=== PATIENT | female | born 1930 | race Caucasian/White ===

== ENCOUNTER 2017-03-25 09:45 | Emergency (ER) | payer MEDICARE, MEDICAID ==
[~2017-03-25] VITALS: Ht 170.2 cm; Wt 95.4 kg
[~2017-03-25 09:45] MED LIST: ATOR40TA69 PO; CHOL200025 PO; CLOP75TA28 PO; LISI2.5T PO; MELA3TAB35 PO; METH-313 PO; METO25TA6 PO; MULT-666 PO; NITR0.4T PO; NYST1POW25 TOPICAL; OXYC1TAB24 PO; PANT40TA3 PO; WARF2.5T82 PO; WARF5TAB7 PO
--- NOTE | 2017-03-25 10:02 | ED.REPORT ---
HPI-General Illness Date of Service Mar 25, 2017 ED Provider: Mando Neville MD Pt is an 86 y/o female anticoagulated on Warfarin w/ a hx of a-fib, CAD s/p stenting and CABG, AAA, presenting to the ED c/o bilateral hip pain L>R secondary to ground level fall which occurred 3 days ago. The patient was making a turn in her room while using her walker and fell to the ground. She is unsure of why she fell but states she probably tripped. She denies lightheadedness, CP, palpitations, WOOD, vision changes, change in LOC. Pt denies head injury. The patient yelled out to her children and was able to stand up and walk. She has been able to ambulate with her walker since the incident although the pain has been worsening. Her pain is described as dull, rated 5/10 , and intermittently radiating down the leg. She has been feeling like she has a UTI for the past week or so. Nursing Notes Stated Complaint: GLF (03/22/17) BILATERAL HIP PAIN Chief Complaint: Extremity Trauma Nursing Notes Reviewed: Yes Allergies: Coded Allergies: No Known Allergies (Unverified , 05/21/16) Scheduled Atorvastatin Calcium (Atorvastatin Calcium) 40 Mg Tablet 40 MG PO DAILY Cholecalciferol (Vitamin D3) (Vitamin D3) 2,000 Unit Tablet 2,000 UNIT PO BID Clopidogrel (Clopidogrel) 75 Mg Tablet 75 MG PO DAILY Lisinopril (Lisinopril) 2.5 Mg Tablet 2.5 MG PO DAILY Metoprolol Tartrate (Metoprolol Tartrate) 25 Mg Tablet 25 MG PO BID Multivitamin (Once Daily) 1 Each Tablet 1 EACH PO DAILY Nystatin (Nystatin) 1 Each Powder.ea. 1 APPLIC TOPICAL BID Pantoprazole DR (Pantoprazole DR) 40 Mg Tablet.dr 40 MG PO DAILY Sulfamethoxazole/Trimeth 800-160 mg (Bactrim DS 800-160 mg) 1 Each Tablet 1 TABLET PO BID Warfarin Sodium (Warfarin Sodium) 2.5 Mg Tablet 2.5 MG PO M, W, F Warfarin Sodium (Warfarin Sodium) 5 Mg Tablet 5 MG PO S, T, , Scheduled PRN Melatonin (Melatonin) 3 Mg Tablet 6 MG PO HS PRN PRN Insomnia Methocarbamol (Robaxin-750) 750 Mg Tablet 750 MG PO QID PRN PRN For Spasm Nitroglycerin SL (Nitrostat) 0.4 Mg Tab.subl 1 TABLET PO [id number] PRN PRN For Pain oxyCODONE-Acetaminophen 5-325 mg (oxyCODONE-Acetaminophen 5-325 mg) 1 Each Tablet 1-2 TAB PO Q6H PRN PRN For Pain General Time Seen by MD: 10:01 Chief Complaint Other (hip pain) Hx Obtained From: Patient Arrived By: Walk-in Sudden in Onset?: Yes Onset Occurred: 3 days ago Symptom Duration: Since onset Caused by: Fall on ground Location: : Hip left: Hip right Quality: Painful Severity: Current: Moderate Severity: Maximum: Moderate Past Medical History Past Medical History Atrial fibrillation on Warfarin CAD HTN GERD myocardial infarction 3.4 cm AAA seen on lumbar films 05/18 restless legs Arthritis sleepwalking with frequent ground level falls Chronic peripheral edema Past Surgical History Right ankle Cardiac bypass Cardiac stent Reports: Cholecystectomy Smoking History Former Smoker Social History Other Social History: Good social support, Lives with children Ambulatory Status Independent Review of Systems Full Review of Systems Constitutional: Denies: Chills, Fever Respiratory: Denies: Non-productive cough, Pleuritic pain, Shortness of breath Cardiovascular: Denies: Chest pain, Dyspnea on exertion, Palpitations, Syncope GI: Denies: Abdominal pain, Nausea, Vomiting Female: Reports: Dysuria, Urinary frequency Musculoskeletal: Reports: Extremity pain, Joint pain Neurologic: Denies: Abnormal movement, Bladder dysfunction, Bowel dysfunction, Change LOC, Confusion, Dizziness, Focal weakness, Headache, Lightheaded, Numbness, Problem walking, Seizure, Shaking, Slurred speech, Spinning sensation , Syncope, Unable to speak, Vision change, Weakness Complete sys rev & neg: except as marked. Physical Exam Nursing note and vitals reviewed. Constitutional: Well-developed, well-nourished. Not diaphoretic. Head: Normocephalic and atraumatic. Mouth/Throat: Oropharynx is clear and moist. No oropharyngeal exudate. Eyes: EOM are normal. Pupils are equal, round, and reactive to light. Neck: Supple, no tracheal deviation. Cardiovascular: Normal rate, regular rhythm. Equal and intact distal pulses throughout. 1+ edema bilaterally. Pulmonary/Chest: Effort normal and breath sounds normal. No respiratory distress. Abdominal: Soft. No distension. There is no tenderness, rebound, or guarding. Musculoskeletal: Range of motion grossly intact, moving all extremities. 1+ edema bilaterally. Good DP and PT pulses bilaterally. Mild tenderness to the proximal left femur. Pelvis stable. Neurological: AOx3. Grossly nonfocal exam. Strength and sensation intact and equal to bilateral upper and lower extremities. Skin: Warm and dry, no rashes or pallor appreciated. Psychiatric: Appropriate mood and affect. Behavior appears normal. Vital Signs Vital Signs Date Time Temp Pulse Resp B/P Pulse Ox O2 Delivery O2 Flow Rate FiO2 03/25/17 15:29 36.7 76 16 152/67 98 Room Air 03/25/17 12:09 37 65 17 140/58 95 Room Air 03/25/17 10:03 36.8 69 17 152/60 97 Room Air Initial VS: Reviewed, Vital signs normal Interpretation & Diagnostics Interpretation & Diagnostics: CT pelvis w/out contrast: IMPRESSION: 1. Corticated ossific calcification adjacent to the right acetabulum as above. Overall appearance is considered indeterminate in regards to age. However, given the degree of degenerative change present within the right hip, it could be related to old trauma. Recommend correlation with point tenderness. Otherwise, no areas of fracture identified. Dictated by: Wendy Osuna M.D. on 03/25/2017 at 14:03 Approved by: Wendy Osuna M.D. on 03/25/2017 at 14:08 Lab Results Interpretation Result Diagram: 03/25/17 1119 03/25/17 1119 Test 03/25/17 11:19 03/25/17 11:38 03/25/17 15:30 White Blood Count 5.1th/mm3 (3.8-10.1) Red Blood Count 3.76mil/mm3 (3.90-5.20) Hemoglobin 11.3g/dL (12.0-15.6) Hematocrit 34.9% (35.0-46.0) Mean Corpuscular Volume 92.8fL (81-100) Mean Corpuscular Hemoglobin 30.1pg (27.0-35.0) Mean Corpuscular Hemoglobin Concent 32.4% (32.0-37.0) Red Cell Distribution Width 13.0% (12.3-15.4) Platelet Count 215bil/L (150-400) Neutrophils (%) (Auto) 73.3% (40-74) Lymphocytes (%) (Auto) 15.8% (14-46) Monocytes (%) (Auto) 8.7% (4-12) Eosinophils (%) (Auto) 1.8% (0-5) Basophils (%) (Auto) 0.2% (0-3) Prothrombin Time 29.2sec (8.1-12.5) Prothromb Time International Ratio 2.67ratio Activated Partial Thromboplast Time 43.0sec (22.8-33.0) Sodium Level 131mEq/L (134-144) Potassium Level 4.4mEq/L (3.5-5.2) Chloride Level 97mEq/L (97-108) Carbon Dioxide Level 22mmol/L (18-29) Blood Urea Nitrogen 28mg/dL (8-27) Creatinine 1.03mg/dL (0.57-1.00) Estimat Glomerular Filtration Rate 73mL/min (>59) Glucose Level 130mg/dL (60-99) Calcium Level 9.0mg/dL (8.5-10.1) Magnesium Level 2.1mg/dL (1.6-2.6) Total Bilirubin 0.5mg/dL (0.0-1.2) Aspartate Amino Transf (AST/SGOT) 18U/L (0-50) Alanine Aminotransferase (ALT/SGPT) 13U/L (0-32) Alkaline Phosphatase 58U/L (25-165) Troponin T 0.010ug/L (0.0-0.011) Total Protein 6.4g/dL (6.4-8.4) Albumin 3.6g/dL (3.4-5.0) Lipase 29U/L (13-60) Hold [place] Top Tube Received (Received) Urine Color Yellow (YELLOW) Urine Appearance Hazy (CLEAR,HAZY) Urine pH 6.0 (5.0-8.0) Urine Specific [place] 1.010 (1.003-1.035) Urine Protein Negativemg/dL (NEG,TRACE) Urine Glucose (UA) Negativemg/dL (NEGATIVE) Urine Ketones Negativemg/dL (NEGATIVE) Urine Occult Blood Trace (NEGATIVE) Urine Nitrite Negative (NEGATIVE) Urine Bilirubin Negative (NEGATIVE) Urine Urobilinogen Normalmg/dL (NORMAL) Urine Leukocyte Esterase Moderate (NEGATIVE) Urine RBC 0-2/hpf (0-2) Urine WBC 11-50/hpf (0-5) Urine Epithelial Cells Few/hpf (NONE-MOD) Urine Crystals None seen (NONE SEEN) Urine Bacteria Many/hpf (NONE-FEW) Urine Hyaline Casts None/lpf (NONE) Urine Granular Casts None seen (NONE SEEN) Urine Waxy Casts None seen (NONE SEEN) Urine Red Blood Cell Casts None seen (NONE SEEN) Urine White Blood Cell Casts None seen (NONE SEEN) Urine Mucus None seen (None Seen) Urine Trichomonas None seen (NONE SEEN) Urine Yeast None (NONE SEEN) Urinalysis Comment None Hold Urine Received (Received) ECG Interpretation Time: 12:06 Interpreted by: ED physician Normal ECG Interpretation: Normal ECG w/ rate of... (61), Normal rate, Normal sinus rhythm, No acute ischemic changes, Normal QRS, Normal axis, Normal intervals, Adequate tracing X-Ray Chest Interpretation Chest Xray Interpretation: IMPRESSION: No acute pulmonary process. Dictated by: Wendy Osuna M.D. on 03/25/2017 at 11:21 Approved by: Wendy Osuna M.D. on 03/25/2017 at 11:22 View: Portable, 1 view Interpretation / Wet Read by: Interpret - Radiologist X-Ray Interpretation Xray Interpretation: IMPRESSION: Nondisplaced left acetabular lucency suggestive of fracture. Given history of trauma and intact appearance on 06/07/16, finding is suspicious for acute injury. Dictated by: Wendy Osuna M.D. on 03/25/2017 at 11:15 Approved by: Wendy Osuna M.D. on 03/25/2017 at 11:16 ADDENDUM: Please note that the acetabular lucency is noted on the right, not the left. Dictated by: Wendy Osuna M.D. on 03/25/2017 at 14:21 Approved by: Wendy Osuna M.D. on 03/25/2017 at 14:21 X-Ray Ordered: Pelvis Interpretation / Wet Read by: Interpret - Radiologist CT Head Interpretation IMPRESSION: 1. No acute intracranial process. 2. Moderate atrophy and chronic microvascular ischemic changes. . Dictated by: Wendy Osuna M.D. on 03/25/2017 at 14:02 Approved by: Wendy Osuna M.D. on 03/25/2017 at 14:03 Study: Head CT no contrast Interpretation / Wet Read by: Interpret - Radiologist Re-Eval/Medical Decision Med Decision/Clinical Course In summary, 86-year-old female presenting to the ED for evaluation after a mechanical fall several days ago, now with left hip pain. No prodromal symptoms. Initial laboratory studies notable for a stable H&H from previous, INR of 2.67, creatinine of 1.03, sodium of 131, urinalysis consistent with UTI. Pelvis x-ray initially read as having a nondisplaced left acetabular fracture , however later addended to say that this was in fact the right side and the image was flipped. Discussed the patient with orthopedics as per below; CT scan with no evidence of acute fracture on the left where the patient has her pain, however CT does show findings above. Instructed to minimize weight bearing until follow up - patient does have a walker and a wheelchair. No tenderness on that side, though limited by habitus. Patient started on antibiotics for her UTI. Plan discharge with careful return precautions, close PCP follow-up. Patient agreeable to the plan as stated, no further questions. Time of Eval: 14:57 Re-Evaluation/Progress Note: Pt rechecked. Informed pt of plan for discharge. Pt understands and agrees with plan for discharge. F/U instructions and RTER warnings given. All questions addressed. Consultation : Referral / Consult Name: Jesse Buck DO Consulted With: Orthopedic Call Returned at: 12:16 Faculty Research Physician: Agrees with eval, Agrees with plan Note: If it is just outside of acetabulum on lip she can be partial weightbearing on walker and f/u with ortho clinic. Recommends CT scan to see if it extends further into acetabulum. Counseled Regarding: Diagnosis, Lab results, Need for follow-up, When/why to return to ED Discharge & Departure Primary Impression: Nondisplaced fracture of right acetabulum Encounter type: initial encounter Sublocation of acetabulum: unspecified portion of acetabulum Fracture type: closed Qualified Code: S32.401A - Unspecified fracture of right acetabulum, initial encounter for closed fracture Additional Impressions: Fall from ground level UTI (urinary tract infection) Urinary tract infection type: site unspecified Hematuria presence: without hematuria Qualified Code: N39.0 - Urinary tract infection, site not specified Disposition: Home Discharge Condition All VS Reviewed: Yes Condition: Stable Additional Instructions: Thank you for allowing us to be a part of your care today. As we discussed, there may be a small fracture on the right side of your pelvis/hip. I would like you to minimize weightbearing on your right leg until you follow up. Please follow up with her primary care doctor in the next several days, and call the orthopedics clinic tomorrow for an appointment. Please review attached instructions for more information. Return to the ED immediately if you develop any worsening pain, numbness or tingling in your leg, decreased sensation, or your leg feels cold, or if there is anything else of concern to you. You also have a urinary tract infection. I have prescribed you medicine for this; please take it as prescribed. There is a possibility that this could interact with your warfarin, so I would like you to get your INR checked in the next several days. Call Dr. Velásquez's office tomorrow. I hope you feel better soon. Referrals: Chevy Goldberg MD (PCP) Yuliana Attestation Portions of this note were transcribed by Emmanuel Glez. I, Dr. Neville personally performed the history, physical exam and medical decision-making; I reviewed and confirmed the accuracy of the information in the transcribed note. Signed by Yuliana Loaiza, 03/25/17 - 1100 copies to: Chevy Goldberg MD, William B MD Mar 25, 2017 10:02 EMMANUEL GLEZ Mar 25, 2017 10:19
[2017-03-25 10:03] VITALS: BP 152/60; PULSE 69; RESP 17; O2SAT 97
[2017-03-25] MEDS ORDERED: HYDROmorphone 0.5 mg/0.5 mL iSecure Syringe IVPUSH PRN (10:10)
[2017-03-25] MEDS ORDERED: Ondansetron 2 mg/mL 2 mL Inj IVPUSH PRN (10:10)
--- NOTE | 2017-03-25 11:18 | DRSVH ---
PROCEDURE: X-RAY PELVIS, ONE OR TWO VIEWS ([id number]) INDICATIONS: fall, pain TECHNIQUE: 1 view(s) of the pelvis acquired. COMPARISON: [facility], CR, XR HIP 2VW LT, 06/07/2016, 9:04. FINDINGS: Bones: There is a lucency along the lateral aspect of the left acetabulum. No suspicious bony lesion s. Soft tissues: Visualized bowel gas pattern is normal. No suspicious soft tissue calcifications. IMPRESSION: Nondisplaced left acetabular lucency suggestive of fracture. Given history of trauma and intact appearance on 06/07/16, finding is suspicious for acute injury. Dictated by: Wendy Osuna M.D. on 03/25/2017 at 11:15 Approved by: Wendy Osuna M.D. on 03/25/2017 at 11:16
--- NOTE | 2017-03-25 11:24 | DRSVH ---
PROCEDURE: X-RAY CHEST ONE VIEW, PORTABLE ([id number]) INDICATIONS: fall, pain TECHNIQUE: One view of the chest was acquired. COMPARISON: [facility], CR, XR CHEST 2VW, 09/01/2016, 18:10. FINDINGS: Surgical changes and devices: Sternal wires and hilar clips. Lungs and pleura: No pleural effusions or pneumothorax. Lungs are clear. Mediastinum: Mediastinal contours appear normal. Heart size is normal. Bones and chest wall: No suspicious bony lesions. Overlying soft tissues appear unremarkable. Unch anged calcification along the left seventh rib. IMPRESSION: No acute pulmonary process. Dictated by: Wendy Osuna M.D. on 03/25/2017 at 11:21 Approved by: Wendy Osuna M.D. on 03/25/2017 at 11:22
[2017-03-25 11:31] LABS: BASOPHILS % (AUTO) 0.2 % (0-3); EOSINOPHILS % (AUTO) 1.8 % (0-5); MONOCYTES % (AUTO) 8.7 % (4-12); Mean Corpuscular Hemoglobin 30.1 pg (27.0-35.0); Mean Corpuscular Volume 92.8 fL (81-100); NEUTROPHILS % (AUTO) 73.3 % (40-74); Platelet Count 215 bil/L (150-400)
[2017-03-25 12:09] VITALS: BP 140/58; PULSE 65; RESP 17; O2SAT 95
[2017-03-25 12:13] LABS: INR 2.67 ratio
[2017-03-25 12:17] LABS: APPEARANCE,URINE HAZY (CLEAR,HAZY); COLOR,URINE YELLOW (YELLOW); OCCULT BLOOD,URINE TRACE (NEGATIVE); UROBILINOGEN,URINE NORMAL (NORMAL)
[2017-03-25 12:18] LABS: TROPONIN T 0.01 ug/L (0.0-0.011)
[2017-03-25 12:29] LABS: Magnesium 2.1 mg/dL (1.6-2.6)
--- NOTE | 2017-03-25 14:05 | DRSVH ---
PROCEDURE: CT BRAIN WITHOUT CONTRAST ([id number]) INDICATIONS: fall on coumadin TECHNIQUE: Noncontrast 4.5 mm thick angled axial sections acquired from the foramen magnum to the vertex, with c oronal reformats. COMPARISON: [facility], CR, XR PELVIS 1 OR 2VW, 03/25/2017, 10:34. [facility] l, CT, CT BRAIN WO CON, 07/22/2016, 8:18. FINDINGS: Image quality: Excellent. CSF spaces: Basal cisterns are patent. No extra-axial fluid collections. The ventricles are symmet arnulfo in size and shape. Brain: No intracranial bleeds or masses. There is cerebral volume loss for age, with resultant vent ricular and sulcal prominence. There are periventricular and deep white matter chronic small vessel ischemic changes. There is intracranial internal carotid artery atherosclerosis. Skull and face: Calvarium and visualized facial bones appear intact, without suspicious lesions. Sinuses: Visualized sinuses and mastoids are clear. IMPRESSION: 1. No acute intracranial process. 2. Moderate atrophy and chronic microvascular ischemic changes. . Dictated by: Wendy Osuna M.D. on 03/25/2017 at 14:02 Approved by: Wendy Osuna M.D. on 03/25/2017 at 14:03
--- NOTE | 2017-03-25 14:10 | DRSVH ---
PROCEDURE: CT PELVIS WITHOUT CONTRAST ([id number]) INDICATIONS: better eval hip fx see if extend into acetabulum TECHNIQUE: After the administration of oral contrast, 5 mm thick sections acquired from the iliac crests to the symphysis. 5 mm coronal and sagittal reformats were then performed. For radiation dose reduction, t he following was used: automated exposure control, adjustment of mA and/or kV according to patient s ize. COMPARISON: [facility], CR, XR HIP 2VW LT, 06/07/2016, 9:04. [facility], CT, CT LUMBAR SPINE WO CON, 06/04/2016, 5:47. [facility], CR, XR PELVIS 1 OR 2VW, 03/25/2017, 10:34. FINDINGS: Image quality: Excellent. Peritoneum and bowel: Bowel loops demonstrate normal wall thickness and caliber. No free fluid or a ir. Genitourinary: Bladder wall thickness is normal. Nodes and vessels: No iliac, pelvic, or inguinal adenopathy by size criteria. Iliac vessels demonst rate normal size. Bones: No suspicious bony lesions. There is a corticated calcification adjacent to the lateral aspec t of the right acetabulum. Heterotopic bone is present along the inferior medial femoral head as well as significant degenerative change appearing most suggestive of heterotopic ossification. Miscellaneous: No inguinal hernias. IMPRESSION: 1. Corticated ossific calcification adjacent to the right acetabulum as above. Overall appearance is considered indeterminate in regards to age. However, given the degree of degenerative change present within the right hip, it could be related to old trauma. Recommend correlation with point tenderness. Otherwise, no areas of fracture identified. Dictated by: Wendy Osuna M.D. on 03/25/2017 at 14:03 Approved by: Wendy Osuna M.D. on 03/25/2017 at 14:08
[2017-03-25] MEDS ORDERED: SULF1TAB35 PO (14:53)
[2017-03-25 15:29] VITALS: BP 152/67; PULSE 76; RESP 16; O2SAT 98
== END 2017-03-25 15:30 | disposition home or self-care (01) ==
LOC: SED 09:45
DX: S32.491A Other specified fracture of right acetabulum, initial encounter for closed fracture (principal); W18.39XA Other fall on same level, initial encounter; Y93.89 Activity, other specified; Y92.009 Unspecified place in unspecified non-institutional (private) residence as the place of occurrence of the external cause; Y99.8 Other external cause status; N39.0 Urinary tract infection, site not specified; I11.9 Hypertensive heart disease without heart failure; I25.2 Old myocardial infarction; I48.91 Unspecified atrial fibrillation; I25.10 Atherosclerotic heart disease of native coronary artery without angina pectoris; K21.9 Gastro-esophageal reflux disease without esophagitis; Z95.1 Presence of aortocoronary bypass graft; Z95.5 Presence of coronary angioplasty implant and graft; Z79.01 Long term (current) use of anticoagulants; Z87.891 Personal history of nicotine dependence

== ENCOUNTER 2017-03-29 05:35 | Emergency (ER) | payer MEDICARE, MEDICAID ==
[~2017-03-29] VITALS: Ht 170.2 cm; Wt 95.5 kg
[~2017-03-29 05:35] MED LIST changes: +SULF1TAB35 PO
[2017-03-29 05:41] VITALS: BP 189/83; PULSE 69; RESP 18; O2SAT 97
--- NOTE | 2017-03-29 06:39 | ED.REPORT ---
HPI-Trauma Minor / Fall Date of Service Mar 29, 2017 ED Provider: Sherwin Batista MD Patient is an 86 year old female with a hx of Afib on Warfarin, CAD, HTN, and AAA who presents to the ED s/p a ground level fall this morning. She was walking back from the bathroom with her walker when she paused and fell asleep standing up. She fell backwards and hit her back on a corner in her home. She denies hitting her head. Her only complaint is mild neck and back soreness. She denies LOC, headache, nausea, vomiting, or any other symptoms. Nursing Notes Stated Complaint: GLF/ BACK INJURY Chief Complaint: Multiple Trauma/Fall Nursing Notes Reviewed: Yes Allergies: Coded Allergies: No Known Allergies (Unverified , 05/21/16) Scheduled Atorvastatin Calcium (Atorvastatin Calcium) 40 Mg Tablet 40 MG PO DAILY Cholecalciferol (Vitamin D3) (Vitamin D3) 2,000 Unit Tablet 2,000 UNIT PO BID Clopidogrel (Clopidogrel) 75 Mg Tablet 75 MG PO DAILY Lisinopril (Lisinopril) 2.5 Mg Tablet 2.5 MG PO DAILY Metoprolol Tartrate (Metoprolol Tartrate) 25 Mg Tablet 25 MG PO BID Multivitamin (Once Daily) 1 Each Tablet 1 EACH PO DAILY Nystatin (Nystatin) 1 Each Powder.ea. 1 APPLIC TOPICAL BID Pantoprazole DR (Pantoprazole DR) 40 Mg Tablet.dr 40 MG PO DAILY Sulfamethoxazole/Trimeth 800-160 mg (Bactrim DS 800-160 mg) 1 Each Tablet 1 TABLET PO BID Warfarin Sodium (Warfarin Sodium) 2.5 Mg Tablet 2.5 MG PO M, W, F Warfarin Sodium (Warfarin Sodium) 5 Mg Tablet 5 MG PO S, T, , Scheduled PRN Melatonin (Melatonin) 3 Mg Tablet 6 MG PO HS PRN PRN Insomnia Methocarbamol (Robaxin-750) 750 Mg Tablet 750 MG PO QID PRN PRN For Spasm Nitroglycerin SL (Nitrostat) 0.4 Mg Tab.subl 1 TABLET PO [id number] PRN PRN For Pain oxyCODONE-Acetaminophen 5-325 mg (oxyCODONE-Acetaminophen 5-325 mg) 1 Each Tablet 1-2 TAB PO Q6H PRN PRN For Pain General Time Seen by MD: 06:10 Chief Complaint Fall Hx Obtained From: Patient Arrived By: Walk-in Onset Occurred: Just prior to arrival Similar Sx Previous: Yes Past Medical History Past Medical History Atrial fibrillation on Warfarin CAD HTN GERD myocardial infarction 3.4 cm AAA seen on lumbar films 05/18 restless legs 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 GI: Denies: Nausea, Vomiting Physical Exam Initial Vital Signs Vital Signs (First) Date Time Temp Pulse Resp B/P Pulse Ox O2 Delivery O2 Flow Rate FiO2 03/29/17 05:41 36.6 69 18 189/83 97 Room Air Initial VS: Reviewed, Vital signs abnormal Skin: Warm, Dry Neurologic: Alert, Oriented, Nonfocal Psychiatric: Mood/affect normal, Behavior normal, Normal thought content General/Constitutional: Awake, Alert Neck: Atraumatic Diffuse neck tenderness, mostly L lateral Head / Eyes: Atraumatic, Normocephalic, EOMI Respiratory / Chest: Breath sounds NL, Breath sounds = bilat, No respiratory distress Abdomen: Atraumatic, Soft, Non-tender Back: Full range of motion Diffuse thoracic spine tenderness Hematoma on R buttock Interpretation & Diagnostics Lab Results Interpretation Result Diagram: 03/29/17 0700 03/29/17 0700 Test 03/29/17 07:00 03/29/17 09:40 White Blood Count 5.8th/mm3 (3.8-10.1) Red Blood Count 3.74mil/mm3 (3.90-5.20) Hemoglobin 11.5g/dL (12.0-15.6) Hematocrit 34.5% (35.0-46.0) Mean Corpuscular Volume 92.2fL (81-100) Mean Corpuscular Hemoglobin 30.7pg (27.0-35.0) Mean Corpuscular Hemoglobin Concent 33.3% (32.0-37.0) Red Cell Distribution Width 13.3% (12.3-15.4) Platelet Count 239bil/L (150-400) Neutrophils (%) (Auto) 70.5% (40-74) Lymphocytes (%) (Auto) 15.5% (14-46) Monocytes (%) (Auto) 11.4% (4-12) Eosinophils (%) (Auto) 2.2% (0-5) Basophils (%) (Auto) 0.2% (0-3) Prothrombin Time 32.7sec (8.1-12.5) Prothromb Time International Ratio 2.99ratio Sodium Level 132mEq/L (134-144) Potassium Level 4.6mEq/L (3.5-5.2) Chloride Level 98mEq/L (97-108) Carbon Dioxide Level 18mmol/L (18-29) Blood Urea Nitrogen 32mg/dL (8-27) Creatinine 1.23mg/dL (0.57-1.00) Estimat Glomerular Filtration Rate 60mL/min (>59) Glucose Level 118mg/dL (60-99) Calcium Level 8.9mg/dL (8.5-10.1) Total Bilirubin 0.3mg/dL (0.0-1.2) Aspartate Amino Transf (AST/SGOT) 21U/L (0-50) Alanine Aminotransferase (ALT/SGPT) 15U/L (0-32) Alkaline Phosphatase 61U/L (25-165) Total Protein 6.7g/dL (6.4-8.4) Albumin 3.6g/dL (3.4-5.0) Lab Results Interpretation: CT THORACIC: IMPRESSION: No fracture. No acute osseous lesion. If symptoms and/or clinical suspicion for pathology persists, MRI may be helpful for further assessment. Dictated by: Dalia Floyd MD, PhD on 03/29/2017 at 9:09 Approved by: Dalia Floyd MD, PhD on 03/29/2017 at 9:17 CT Head Interpretation IMPRESSION: No acute intracranial disease process. Dictated by: Dalia Floyd MD, PhD on 03/29/2017 at 8:41 Approved by: Dalia Floyd MD, PhD on 03/29/2017 at 8:44 Study: Head CT no contrast Interpretation / Wet Read by: Interpret - Radiologist CT Abd / Pelvis Interpretation IMPRESSION: 1. No acute traumatic injury. 2. 3.4 x 3.5 cm infrarenal abdominal aortic aneurysm. 3. Colonic diverticulosis without evidence of diverticulitis. 4. Atherosclerosis including the visualized coronary vasculature. 5. Small hiatal hernia. 6. Status post cholecystectomy. Dictated by: Dalia Floyd MD, PhD on 03/29/2017 at 8:58 Approved by: Dalia Floyd MD, PhD on 03/29/2017 at 9:09 Study type: Abdominal CT IV contrast Interpretation / Wet Read by: Interpret - Radiologist CT C-Spine Interpretation IMPRESSION: No fracture. No acute osseous lesion. If symptoms and/or clinical suspicion for pathology persists, MRI may be helpful for further assessment. Dictated by: Dalia Floyd MD, PhD on 03/29/2017 at 8:49 Approved by: Dalia Floyd MD, PhD on 03/29/2017 at 8:58 Study type: CT no contrast Interpretation / Wet Read by: Interpret - Radiologist Re-Eval/Medical Decision Med Decision/Clinical Course 86-year-old female history of atrial fibrillation on warfarin presenting status post ground fall onto her back. Complaining of neck pain. Denies any loss of consciousness. She does not believe she hit her head. Her only complaint at this time is low back pain and neck pain. She reports neck pain she believes is chronic. She has no red flag symptoms. Neurological exam is completely benign. She had some midline and diffuse mid thoracic tenderness. She had some lateral neck pain. CT head/c-spine/t-spine/abd/pelvis with no acute pathology. Labs are stable. Patient felt much better after observation. She is discharged home in good condition in the care of her daughter with return precautions if any worsening pain, dizziness, lightheadedness, chest pain, difficulty breathing, abdominal pain. She will follow up with her primary doctor tomorrow if needed. Re-Evaluation/Progress : Time of Eval: 09:40 Re-Evaluation/Progress Note: Discussed plan for discharge. Patient understands and agrees with plan. All questions addressed at this time. Counseled Regarding: Diagnosis, Lab results, Need for follow-up, When/why to return to ED Discharge & Departure Impression: Primary Impression: Back pain Back pain location: back pain in unspecified location Chronicity: unspecified Back pain laterality: unspecified Qualified Code: M54.9 - Dorsalgia, unspecified Additional Impressions: Fall Encounter type: initial encounter Qualified Code: W19.XXXA - Unspecified fall, initial encounter Anticoagulation adequate with anticoagulant therapy Disposition: Home Discharge Condition All VS Reviewed: Yes Condition: Stable Additional Instructions: Thank you for entrusting us with your care. Your imaging and labs are all normal. Follow up with your primary doctor within the next week. Return to the emergency department if you experience numbness, weakness, tingling, lightheadedness, dizziness, fatigue, confusion, worsening headache, vomiting, incontinence, or any other symptoms. Referrals: Nathan Velásquez DO (PCP) Scribe Attestation Portions of this note were transcribed by Dexter Conway. I, Dr. Batista personally performed the history, physical exam and medical decision-making; I reviewed and confirmed the accuracy of the information in the transcribed note. Signed by: Yuliana Hampton, 03/29/17 at 0941 copies to: Nathan Velásquez Ben M MD Mar 29, 2017 06:39 DEXTER CONWAY Mar 29, 2017 06:46
[2017-03-29] MEDS ORDERED: Ondansetron 2 mg/mL 2 mL Inj IVPUSH PRN (06:50)
[2017-03-29 07:22] LABS: Mean Corpuscular Hemoglobin 30.7 pg (27.0-35.0); Mean Corpuscular Volume 92.2 fL (81-100)
[2017-03-29 07:23] LABS: BASOPHILS % (AUTO) 0.2 % (0-3); EOSINOPHILS % (AUTO) 2.2 % (0-5); MONOCYTES % (AUTO) 11.4 % (4-12); NEUTROPHILS % (AUTO) 70.5 % (40-74); Platelet Count 239 bil/L (150-400)
[2017-03-29 07:48] LABS: INR 2.99 ratio
--- NOTE | 2017-03-29 08:46 | DRSVH ---
PROCEDURE: CT BRAIN WITHOUT CONTRAST ([id number]) INDICATIONS: trauma TECHNIQUE: Noncontrast 4.5 mm thick angled axial sections acquired from the foramen magnum to the vertex, with c oronal reformats. COMPARISON: [facility], CT, CT BRAIN WO CON, 06/06/2016, 20:14. FINDINGS: Image quality: Excellent. CSF spaces: Basal cisterns are patent. No extra-axial fluid collections. The ventricles are symmet arnulfo in size and shape. Brain: No intracranial bleeds or masses. There is cerebral volume loss for age, with resultant vent ricular and sulcal prominence. Small, chronic, lacunar infarct in the left thalamus is noted. There a re periventricular and deep white matter chronic small vessel ischemic changes. There is intracrania l internal carotid artery and vertebral artery atherosclerosis. Skull and face: Calvarium and visualized facial bones appear intact, without suspicious lesions. Sinuses: Visualized sinuses and mastoids are clear. IMPRESSION: No acute intracranial disease process. Dictated by: Dalia Floyd MD, PhD on 03/29/2017 at 8:41 Approved by: Dalia Floyd MD, PhD on 03/29/2017 at 8:44
--- NOTE | 2017-03-29 08:59 | DRSVH ---
PROCEDURE: CT CERVICAL SPINE WITHOUT CONTRAST ([id number]) INDICATIONS: trauma TECHNIQUE: Noncontrast 3 mm thick sections acquired from the skull base to the T4 level. Sagittal and coronal r eformats were then constructed. For radiation dose reduction, the following was used: automated exp osure control, adjustment of mA and/or kV according to patient size. COMPARISON: None. FINDINGS: Image quality: Excellent. Bones: No fractures or dislocations. Visualized superior ribs are intact. Multilevel degenerative d isc disease and facet arthropathy are noted. Soft tissues: Prevertebral soft tissues are normal in thickness. No paravertebral hematomas. No ap ical pneumothoraces. Postsurgical changes compatible prior CABG procedure noted. Atherosclerotic obsc uration is noted in the carotid following the medial course through the retropharyngeal space.. IMPRESSION: No fracture. No acute osseous lesion. If symptoms and/or clinical suspicion for patholog y persists, MRI may be helpful for further assessment. Dictated by: Dalia Floyd MD, PhD on 03/29/2017 at 8:49 Approved by: Dalia Floyd MD, PhD on 03/29/2017 at 8:58
--- NOTE | 2017-03-29 09:11 | DRSVH ---
PROCEDURE: CT ABDOMEN AND PELVIS WITH CONTRAST TRAUMA ([id number]) INDICATIONS: trauma TECHNIQUE: After the administration of intravenous contrast, 5 mm thick sections acquired from the diaphragms to the symphysis. 5 mm thick coronal and sagittal reformats were acquired. Optional 10-minute delayed imaging may be performed from the kidneys to the bladder. For radiation dose reduction, the followi ng was used: automated exposure control, adjustment of mA and/or kV according to patient size. COMPARISON: [facility], CT, CT LUMBAR SPINE WO CON, 05/18/2016, 12:13. [facility], CT, CT LUMBAR SPINE WO CON, 06/04/2016, 5:47. FINDINGS: Image quality: Excellent. ABDOMEN: Lung bases: Lung bases are clear. Heart size is normal. Atherosclerotic calcifications noted in the visualized coronary vasculature. No pericardial effusion. Inferior ribs are intact. No basal pleur al effusions or pneumothorax. Solid organs: Liver and spleen are normal in size and enhancement, without lacerations. Gallbladder is surgically absent. Biliary system is non-dilated. Pancreas enhances normally, without transecti on. No adrenal hematomas. Both kidneys enhance normally, without hydronephrosis or lacerations. Peritoneum and bowel: No free fluid or air. Small hiatal hernia. Unenhanced bowel loops demonstrate normal wall thickness and caliber. Scattered colonic diverticuli are noted without evidence of divert iculitis. Nodes and vessels: No retroperitoneal or mesenteric adenopathy. 3.4 x 3.5 cm infrarenal abdominal ao rtic aneurysm is noted. The inferior vena cava is normal in size and enhancement. Miscellaneous: No ventral hernias. PELVIS: Genitourinary: Bladder wall thickness is normal. Miscellaneous: No inguinal hernias or adenopathy. Stranding noted in the subcutaneous fat of the rig ht upper buttock possibly related to soft tissue contusion. Bones: Pelvic ring and hip joints appear intact. Mild loss of anterior column height in the L5 verte bral body is stable compared to prior CT scans. No acute vertebral compression fractures. Spine degen erative disc disease and facet arthropathy. Severe right hip osteoarthritic degenerative changes are noted. IMPRESSION: 1. No acute traumatic injury. 2. 3.4 x 3.5 cm infrarenal abdominal aortic aneurysm. 3. Colonic diverticulosis without evidence of diverticulitis. 4. Atherosclerosis including the visualized coronary vasculature. 5. Small hiatal hernia. 6. Status post cholecystectomy. Dictated by: Dalia Floyd MD, PhD on 03/29/2017 at 8:58 Approved by: Dalia Floyd MD, PhD on 03/29/2017 at 9:09
--- NOTE | 2017-03-29 09:19 | DRSVH ---
PROCEDURE: CT THORACIC SPINE WITHOUT CONTRAST ([id number]) INDICATIONS: trauma TECHNIQUE: Noncontrast 3 mm thick sections acquired through the region of interest in the thoracic spine. Sagit thu and coronal reformats were then constructed. For radiation dose reduction, the following was use d: automated exposure control. COMPARISON: [facility], CR, XR CHEST 2VW, 09/01/2016, 18:10. [facility], C R, XR CHEST 1VW (PORTABLE), 03/25/2017, 10:34. FINDINGS: Image quality: Excellent. Bones: There is normal overall bony alignment. Schmorl's node with adjacent sclerosis noted in the superior endplate of the T9 vertebral body. Multilevel degenerative disc disease and facet arthropath y noted. No acute vertebral body compression fractures. No suspicious sclerotic or lytic bony lesion s. Central spinal canal is of normal overall caliber. Soft tissues: No paravertebral masses or hematomas. Visualized posteromedial lungs appear clear. IMPRESSION: No fracture. No acute osseous lesion. If symptoms and/or clinical suspicion for patholog y persists, MRI may be helpful for further assessment. Dictated by: Dalia Floyd MD, PhD on 03/29/2017 at 9:09 Approved by: Dalia Floyd MD, PhD on 03/29/2017 at 9:17
[2017-03-29 10:14] VITALS: BP 141/80; PULSE 81; RESP 20
== END 2017-03-29 10:10 | disposition home or self-care (01) ==
LOC: SED 05:35
DX: S30.0XXA Contusion of lower back and pelvis, initial encounter (principal); M54.6 Pain in thoracic spine; M54.2 Cervicalgia; W01.0XXA Fall on same level from slipping, tripping and stumbling without subsequent striking against object, initial encounter; Y93.01 Activity, walking, marching and hiking; Y99.8 Other external cause status; Y92.019 Unspecified place in single-family (private) house as the place of occurrence of the external cause; I48.91 Unspecified atrial fibrillation; I10 Essential (primary) hypertension; I25.10 Atherosclerotic heart disease of native coronary artery without angina pectoris; I25.2 Old myocardial infarction; K21.9 Gastro-esophageal reflux disease without esophagitis; Z95.1 Presence of aortocoronary bypass graft; Z86.79 Personal history of other diseases of the circulatory system; Z90.49 Acquired absence of other specified parts of digestive tract; Z87.891 Personal history of nicotine dependence; Z79.01 Long term (current) use of anticoagulants
CPT/HCPCS: 36415; 70450; 72125; 72128; 74177; 80053; 85025; 85610; 99285; Q9967

== ENCOUNTER 2017-05-30 11:55 | Emergency (ER) | payer MEDICARE, MEDICAID ==
[~2017-05-30] VITALS: Ht 170.2 cm; Wt 96.4 kg
[2017-05-30 12:01] VITALS: BP 183/85; PULSE 67; RESP 18; O2SAT 97
[2017-05-30 13:26] VITALS: BP 170/78; PULSE 69; RESP 20; O2SAT 97
--- NOTE | 2017-05-30 14:47 | ED.REPORT ---
HPI-General Illness Date of Service May 30, 2017 ED Provider: Levi Burton MD The pt is an 87 y/o female with a hx of Afib on Warfarin, CAD, HTN, and AAA who presents to the ED complaining of HTN today after a recent cataract surgery. Her systolic BP at home was 198-200s. She denies change in lower extremity edema, chest pain, shortness of breath, headache, numbness and weakness in extremities, dysuria, and recent change in medications. There are no other complaints at this time. She takes 5mg lisinopril per day instead of the 2.5mg as mentioned in the nurse's note. She took all her medications today. Nursing Notes Stated Complaint: HIGH BP/POST CATARACT SURGERY Chief Complaint: General Complaint Nursing Notes Reviewed: Yes (Reble not reconciled) Allergies: Coded Allergies: No Known Allergies (Unverified , 05/21/16) Scheduled Atorvastatin Calcium (Atorvastatin Calcium) 40 Mg Tablet 40 MG PO DAILY Cholecalciferol (Vitamin D3) (Vitamin D3) 2,000 Unit Tablet 2,000 UNIT PO BID Clopidogrel (Clopidogrel) 75 Mg Tablet 75 MG PO DAILY Lisinopril (Lisinopril) 2.5 Mg Tablet 2.5 MG PO DAILY Metoprolol Tartrate (Metoprolol Tartrate) 25 Mg Tablet 25 MG PO BID Multivitamin (Once Daily) 1 Each Tablet 1 EACH PO DAILY Nystatin (Nystatin) 1 Each Powder.ea. 1 APPLIC TOPICAL BID Pantoprazole DR (Pantoprazole DR) 40 Mg Tablet.dr 40 MG PO DAILY Sulfamethoxazole/Trimeth 800-160 mg (Bactrim DS 800-160 mg) 1 Each Tablet 1 TABLET PO BID Warfarin Sodium (Warfarin Sodium) 2.5 Mg Tablet 2.5 MG PO M, W, F Warfarin Sodium (Warfarin Sodium) 5 Mg Tablet 5 MG PO S, T, Th, Sa Scheduled PRN Melatonin (Melatonin) 3 Mg Tablet 6 MG PO HS PRN PRN Insomnia Methocarbamol (Robaxin-750) 750 Mg Tablet 750 MG PO QID PRN PRN For Spasm Nitroglycerin SL (Nitrostat) 0.4 Mg Tab.subl 1 TABLET PO [id number] PRN PRN For Pain oxyCODONE-Acetaminophen 5-325 mg (oxyCODONE-Acetaminophen 5-325 mg) 1 Each Tablet 1-2 TAB PO Q6H PRN PRN For Pain General Time Seen by MD: 14:47 Chief Complaint Other (hypertension) Hx Obtained From: Patient Arrived By: Walk-in Sudden in Onset?: Yes Onset Occurred: 1 - 4 hours ago Symptom Duration: Since onset Severity: Current: No pain currently Severity: Maximum: No pain Recent Healthcare: No recent doctor visit, Previous surgery Past Medical History Past Medical History Atrial fibrillation on Warfarin CAD HTN GERD myocardial infarction 3.4 cm AAA seen on lumbar films 05/18 restless legs 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 Physical Exam Vital Signs Vital Signs Date Time Temp Pulse Resp B/P Pulse Ox O2 Delivery O2 Flow Rate FiO2 05/30/17 15:16 36.7 70 22 154/72 95 Room Air 05/30/17 15:01 70 22 154/72 95 Room Air 05/30/17 13:26 69 20 170/78 97 Room Air 05/30/17 12:01 36.7 67 18 183/85 97 Initial VS: Reviewed, Vital signs abnormal (HTN (records indicate previous similar HTN)) Neck: Supple, Non-tender, Full range of motion Respiratory: Breath sounds normal, Clear to auscultation, No respiratory distress Cardiovascular: Regular rate & rhythm, Heart sounds normal, Intact distal pulses Abdomen / GI: Soft, Non-tender, No guarding, No rebound, No distention Extremities: Vascular intact, Neuro intact, No swelling, No tenderness Skin: Warm, Dry, No cyanosis Neurologic: Alert, Oriented, Nonfocal General/Constitutional: Awake, Alert, No acute distress, Well appearing, Cooperative Head / Eyes: Atraumatic, Normocephalic Eyes: The pt is wearing glasses after cataract surgery. Eye exam deferred. Re-Eval/Medical Decision Med Decision/Clinical Course This is a pleasant 87-year-old female with a history of hypertension who following her cataract surgery had a blood pressure measurement that was over 200, so became concerned and came to the emerge from the family. She reports she has no symptoms, and has no additional complaints. On recheck in the emergency Department it is down into the 170s, and she has multiple vitals on previous visits that if indicated similar elevations. She again has no complaints, states been compliant with her medications. The patient is a normal physical exam, and I reviewed options. However there is no indication that emergent testing is warranted at this time. The patient is comfortable she states she feels well, her blood pressures are better and back to where it has been in the past-so the plan is discharge with outpatient follow-up, the patient's grab her blood pressures measured at a pharmacy in the next few days away from the providers, is still elevated the plan will be to increase her lisinopril which is on a low dose of 5 mg a day until she can follow up with the PCP for recheck. Routine and return precautions reviewed, sensitive the patient develops new or worsening symptoms she will return to the department. Source of Hx: Old records Time of Eval: 14:51 Re-Evaluation/Progress Note: Discussed diagnosis and plan to discharge without intervention. The pt understands and agrees with the plan. She agrees to check her BP everyday and return in case of any concern. F/U instruction and RTER warning given. All questions addressed. Differential Diagnosis: Negative: Abdominal pain, Allergies, Fracture, G-tube repair/replacement, Pneumonia, Syncope Counseled Regarding: Diagnosis, Need for follow-up, When/why to return to ED Discharge & Departure Primary Impression: HTN (hypertension) Hypertension type: unspecified secondary hypertension Qualified Code: I15.9 - Secondary hypertension, unspecified Disposition: Home Discharge Condition All VS Reviewed: Yes Condition: Stable Additional Instructions: 1. Your blood pressure is improved here in the ED and emergent blood testing and intervention is not required at this time. 2. Continue to monitor at home. (Measure again in a few days at the pharmacy) 3. Continue your lisinopril and metoprolol. 4. If your blood pressure is still elevated (>170 systolic) when remeasured, take a second lisonpril daily until you can follow up with your primary care provider. 5. If he develops symptoms, or new or worsening concerns, return to the emergency department. Referrals: Nathan Velásquez DO (PCP) Scribe Attestation Portions of this note were transcribed by Eve Craig. I,, personally performed the history,physical exam and medical decision-making;I reviewed and confirmed the accuracy of the information in the transcribed note. Signed by Yuliana Reid. 05/30/17 copies to: Nathan Velásquez Matthew F MD May 30, 2017 14:47 Eve Craig May 30, 2017 14:52
[2017-05-30 15:01] VITALS: BP 154/72; PULSE 70; RESP 22; O2SAT 95
[2017-05-30 15:16] VITALS: BP 154/72; PULSE 70; RESP 22; O2SAT 95
== END 2017-05-30 15:17 | disposition home or self-care (01) ==
LOC: SED 11:55
DX: I15.9 Secondary hypertension, unspecified (principal); I25.10 Atherosclerotic heart disease of native coronary artery without angina pectoris; I48.91 Unspecified atrial fibrillation; I25.2 Old myocardial infarction; K21.9 Gastro-esophageal reflux disease without esophagitis; Z95.1 Presence of aortocoronary bypass graft; Z95.5 Presence of coronary angioplasty implant and graft; Z90.49 Acquired absence of other specified parts of digestive tract; Z98.890 Other specified postprocedural states; Z79.01 Long term (current) use of anticoagulants; Z87.891 Personal history of nicotine dependence